=== PATIENT | male | born 1985 | race African-American/Black ===

== ENCOUNTER 2017-08-24 14:34 | Emergency (ER) | payer SELFPAY ==
[2017-08-24 15:50] LABS: Absolute Lymphocytes (CBC) 3.6 K/uL (0.7-4.9); Absolute Monocytes 0.7 K/uL (0.1-1.3); Absolute Neutrophil 6.7 K/uL (1.8-8.0); Hematocrit 47.1 % (39.6-49.0); Lymphocytes % 32.2 % (15.3-44.8); MCV 89.9 fL (80-100); MPV 10.4 fL (7.6-11.3); Monocytes % 6.4 % (3.3-12.3); RBC Red Blood Cell Count 5.24 M/uL (4.33-5.43)
--- NOTE | 2017-08-24 15:55 | RAD REPORT ---
EXAM DESCRIPTION: CT - Head Brain Wo Cont - 08/24/2017 3:46 pm CLINICAL HISTORY: VISUAL DISTURBANCES Headache, drowsiness. COMPARISON: No comparisons TECHNIQUE: All CT scans are performed using dose optimization technique as appropriate and may inclu de automated exposure control or mA/KV adjustment according to patient size. FINDINGS: No intracranial hemorrhage, hydrocephalus or extra-axial fluid collection.No areas of brai n edema or evidence of midline shift. The paranasal sinuses and mastoids are clear. The calvarium is intact. IMPRESSION: No acute intracranial abnormality.
[2017-08-24 16:04] LABS: Potassium 4.2 mmol/L (3.5-5.1)
--- NOTE | 2017-08-24 16:13 | ER ---
Nurse's Notes [facility] Name: Lamonte Rasmussen Age: 32 yrs Sex: Male : 1985 Arrival Date: 08/24/2017 Time: 14:37 Bed 30 Private MD: Diagnosis: Essential (primary) hypertension Presentation: 08/24 14:48 Presenting complaint: Patient states: "[place] I have been really lk1 fatigued, had blurry vision. I just don't feel normal. Before I came here I was given medicine (Norvasc 5mg QD), but I am out of that now.". Transition of care: patient was not received from another setting of care. Onset of symptoms is unknown. Risk Assessment: Do you want to hurt yourself or someone else? Patient reports no desire to harm self or others. Initial Sepsis Screen: Does the patient meet any 2 criteria? No. Patient's initial sepsis screen is negative. Does the patient have a suspected source of infection? No. Patient's initial sepsis screen is negative. Care prior to arrival: None. 14:48 Method Of Arrival: Ambulatory lk1 14:48 Acuity: VERNELL 4 lk1 Triage Assessment: 15:27 Headache History: Denies prior headaches. General: Appears in no apparent distress. mb3 comfortable. General: Behavior is calm, cooperative, appropriate for age. Pain: Also complains of no other associated symptoms. Pain: Denies pain. Pain level that patient reports is acceptable is 2 out of 10 on a pain scale. Pain began gradually. Historical: - Allergies: 14:50 No Known Allergies; lk1 - PMHx: 14:50 Hypertension; lk1 - PSHx: 14:50 None; lk1 - Immunization history:: Adult Immunizations up to date. - Social history:: Smoking status: Patient/guardian denies using tobacco. - Ebola Screening: : No symptoms or risks identified at this time. Screenin:21 Abuse screen: Denies threats or abuse. Nutritional screening: No deficits noted. mb3 Tuberculosis screening: No symptoms or risk factors identified. Fall Risk None identified. Assessment: 15:22 General: Appears in no apparent distress. comfortable, Behavior is calm, cooperative, mb3 appropriate for age. Pain: Denies pain. Neuro: Level of Consciousness is awake, alert, obeys commands, Oriented to person, place, time, situation, Appropriate for age Pt Escort are equal bilaterally Moves all extremities. Full function Gait is steady, Speech is normal, Facial symmetry appears normal, Pupils are PERRLA, Intact Reports blurred vision since this morning weakness since this morning. Cardiovascular: Reports None Denies chest pain, Heart tones present Capillary refill < 3 seconds Patient's skin is warm and dry. Pulses are all present. Rhythm is sinus tachycardia. Respiratory: Airway is patent Respiratory effort is even, unlabored, Respiratory pattern is regular, symmetrical, Breath sounds are clear bilaterally. GI: Abdomen is round obese, Bowel sounds present X 4 quads. Abd is soft and non tender X 4 quads. : No signs and/or symptoms were reported regarding the genitourinary system. EENT: No signs and/or symptoms were reported regarding the EENT system. Derm: No signs and/or symptoms reported regarding the dermatologic system. Musculoskeletal: Capillary refill < 3 seconds, Range of motion: intact in all extremities. Vital Signs: 14:50 BP 141 / 97; Pulse 87; Resp 16; Temp 97.8(TE); Pulse Ox 98% on R/A; Weight 106.59 kg lk1 (R); Height 5 ft. 8 in. (172.72 cm) (R); Pain 3/10; 16:29 BP 132 / 91; Pulse 86; Resp 16; Pulse Ox 99% on R/A; mb3 14:50 Body Mass Index 35.73 (106.59 kg, 172.72 cm) lk1 ED Course: 14:37 Patient arrived in ED. as 14:50 Triage completed. lk1 14:52 Arm band placed on left wrist. lk1 14:59 Marquise Jimenez, ZOHAIB is Primary Nurse. mb3 15:13 Ryan Pinedo PA is PHCP. jr8 15:13 Cam Fish MD is Attending Physician. jr8 15:26 Patient has correct armband on for positive identification. Bed in low position. Call mb3 light in reach. Side rails up X 1. monitoring specialist on. Pulse ox on. NIBP on. 15:35 Missed attempt(s): 22 gauge in right antecubital area. Bleeding controlled, band aid tt1 applied, catheter tip intact. 15:40 Missed attempt(s): 22 gauge in left antecubital area. Bleeding controlled, band aid tt1 applied, catheter tip intact. 15:40 Initial lab(s) drawn, by me, sent to lab. tt1 15:45 CT completed. Patient moved to CT via wheelchair. Patient moved back from CT. cw1 15:45 CT Head Brain wo Cont In Process Unspecified. EDMS 16:30 No provider procedures requiring assistance completed. Patient did not have IV access mb3 during this emergency room visit. Administered Medications: No medications were administered Outcome: 16:12 Discharge ordered by . 8 16:29 Discharged to home ambulatory. mb3 16:29 Condition: stable 16:29 Discharge instructions given to patient, Instructed on discharge instructions, follow up and referral plans. medication usage, Demonstrated understanding of instructions, follow-up care, medications, Prescriptions given X 1. 16:30 Patient left the ED. mb3 Signatures: Dispatcher [employer] EDMS Xiomara Sepulveda Crystal cw1 Ryan Pinedo, HELENE PA jr8 Tere Davila tt1 Gertrude Ruano RN RN lk1 Marquise Jimenez, ZOHAIB RN mb3 Corrections: (The following items were deleted from the chart) 15:55 15:40 Missed attempt(s): 22 gauge in left antecubital area. Bleeding controlled, band tt1 aid applied, catheter tip intact. tt1
--- NOTE | 2017-08-24 16:13 | EDPHYS ---
Physician Documentation [facility] Name: Lamonte Rasmussen Age: 32 yrs Sex: Male : 1985 Arrival Date: 08/24/2017 Time: 14:37 Bed 30 Private MD: ED Physician Cam Fish HPI: 08/24 15:35 This 32 yrs old Black Male presents to ER via Ambulatory with complaints of Blurred jr8 Vision, Blood Pressure Problem, Headache. 15:35 The patient's problem is reported as visual difficulty, blurred vision. Onset: The jr8 symptoms/episode began/occurred gradually, 2 week(s) ago. Duration: The episode is continuous. The symptoms are alleviated by nothing. The symptoms are aggravated by nothing. Associated signs and symptoms: Pertinent positives: headache. Severity of symptoms: At their worst the symptoms were moderate in the emergency department the symptoms are unchanged. Patient's baseline: Neuro: alert and fully oriented, Motor: no deficits, Ambulation: walks without assistance, Speech: normal. The patient has not experienced similar symptoms in the past. The patient has been recently seen by a physician:. Patient recently diagnosed with hypertension. Stated that he was started on 5 mg of Norvasc. Continues to have visual difficulty . Historical: - Allergies: 14:50 No Known Allergies; lk1 - PMHx: 14:50 Hypertension; lk1 - PSHx: 14:50 None; lk1 - Immunization history:: Adult Immunizations up to date. - Social history:: Smoking status: Patient/guardian denies using tobacco. - Ebola Screening: : No symptoms or risks identified at this time. ROS: 15:35 ENT: Negative for injury, pain, and discharge, Neck: Negative for injury, pain, and jr8 swelling, Cardiovascular: Negative for chest pain, palpitations, and edema, Respiratory: Negative for shortness of breath, cough, wheezing, and pleuritic chest pain, Abdomen/GI: Negative for abdominal pain, nausea, vomiting, diarrhea, and constipation, Back: Negative for injury and pain, MS/Extremity: Negative for injury and deformity, Skin: Negative for injury, rash, and discoloration. 15:35 Eyes: Positive for blurry vision. 15:35 Neuro: Positive for headache, visual changes, Negative for altered mental status, dizziness, gait disturbance, hearing loss, loss of consciousness, numbness, seizure activity, speech changes, syncope, near syncope, tingling, tinnitus, tremor, weakness. Exam: 15:35 Eyes: Pupils equal round and reactive to light, extra-ocular motions intact. Lids and jr8 lashes normal. Conjunctiva and sclera are non-icteric and not injected. Cornea within normal limits. Periorbital areas with no swelling, redness, or edema. ENT: Nares patent. No nasal discharge, no septal abnormalities noted. Tympanic membranes are normal and external auditory canals are clear. Oropharynx with no redness, swelling, or masses, exudates, or evidence of obstruction, uvula midline. Mucous membranes moist. Neck: Trachea midline, no thyromegaly or masses palpated, and no cervical lymphadenopathy. Supple, full range of motion without nuchal rigidity, or vertebral point tenderness. No Meningismus. Cardiovascular: Regular rate and rhythm with a normal S1 and S2. No gallops, murmurs, or rubs. Normal PMI, no JVD. No pulse deficits. Respiratory: Lungs have equal breath sounds bilaterally, clear to auscultation and percussion. No rales, rhonchi or wheezes noted. No increased work of breathing, no retractions or nasal flaring. Abdomen/GI: Soft, non-tender, with normal bowel sounds. No distension or tympany. No guarding or rebound. No evidence of tenderness throughout. Back: No spinal tenderness. No costovertebral tenderness. Full range of motion. Skin: Warm, dry with normal turgor. Normal color with no rashes, no lesions, and no evidence of cellulitis. MS/ Extremity: Pulses equal, no cyanosis. Neurovascular intact. Full, normal range of motion. Neuro: Awake and alert, GCS 15, oriented to person, place, time, and situation. Cranial nerves II-XII grossly intact. Motor strength 5/5 in all extremities. Sensory grossly intact. Cerebellar exam normal. Normal gait. 16:13 Radiologist reports: no acute finding jr8 Vital Signs: 14:50 BP 141 / 97; Pulse 87; Resp 16; Temp 97.8(TE); Pulse Ox 98% on R/A; Weight 106.59 kg lk1 (R); Height 5 ft. 8 in. (172.72 cm) (R); Pain 3/10; 16:29 BP 132 / 91; Pulse 86; Resp 16; Pulse Ox 99% on R/A; mb3 14:50 Body Mass Index 35.73 (106.59 kg, 172.72 cm) lk1 MDM: 15:13 Patient medically screened. jr8 16:11 Data reviewed: vital signs, nurses notes, lab test result(s), radiologic studies, CT jr8 scan, and as a result, I will discharge patient. Data interpreted: Pulse oximetry: on room air is 98 %. Interpretation: normal. Counseling: I had a detailed discussion with the patient and/or guardian regarding: the historical points, exam findings, and any diagnostic results supporting the discharge/admit diagnosis, lab results, radiology results, the need for outpatient follow up, a family practitioner, to return to the emergency department if symptoms worsen or persist or if there are any questions or concerns that arise at home. 16:13 ED course: Advised patient that he needs to see ophthalmology for eye exam. To start jr8 back on his Norvasc. If worse to come back . 08/24 15:33 Order name: CBC with Diff; Complete Time: 15:56 jr8 08/24 15:33 Order name: Basic Metabolic Panel; Complete Time: 16:11 jr8 08/24 15:33 Order name: CT Head Brain wo Cont; Complete Time: 15:56 jr8 Administered Medications: No medications were administered Disposition: 18:35 Co-signature as Attending Physician, Cam Fish MD. Disposition: 08/24/17 16:12 Discharged to Home. Impression: Essential (primary) hypertension. - Condition is Stable. - Discharge Instructions: Hypertension. - Prescriptions for Norvasc 5 mg Oral Tablet - take 1 tablet by ORAL route once daily; 30 tablet. - Medication Reconciliation Form, Thank You Letter, Antibiotic Education, Prescription Opioid Use form. - Follow up: Private Physician; When: 1 week; Reason: Recheck today's complaints, Continuance of care, Re-evaluation by your physician. - Problem is new. - Symptoms have improved. Signatures: Dispatcher [employer] EDMS Ryan Pinedo PA PA jr8 Gertrude Ruano RN RN lk1 Cam Fish MD MD Marquise Jimenez RN RN mb3 Corrections: (The following items were deleted from the chart) 16:23 15:33 IV Saline Lock ordered. jr8 ss 16:23 15:33 Urine Dipstick-Ancillary ordered. jr8 16:30 16:12 08/24/2017 16:12 Discharged to Home. Impression: Essential (primary) mb3 hypertension. Condition is Stable. Forms are Medication Reconciliation Form, Thank You Letter, Antibiotic Education, Prescription Opioid Use. Follow up: Private Physician; When: 1 week; Reason: Recheck today's complaints, Continuance of care, Re-evaluation by your physician. Problem is new. Symptoms have improved. jr8
== END 2017-08-24 16:30 | disposition home or self-care (01) ==
LOC: ER 14:34
DX: I10 Essential (primary) hypertension (principal)
CPT/HCPCS: 36415; 70450; 80048; 85025; 99285